=== PATIENT | female | born 1950 | race Caucasian/White ===

== ENCOUNTER → 2017-01-21 08:23 | Day surgery (SDC) | payer BC, MEDICARE ==
--- NOTE | 2017-01-17 11:36 | HP ---
PREOPERATIVE HISTORY AND PHYSICAL EXAM: DATE OF SURGERY/ADMISSION: 01/21/17 DATE OF OFFICE VISIT/ENCOUNTER: 12/30/16 ATTENDING SURGEON: Ruby Ibanez MD * (DICTATED BY BORIS MATTHEW) PROCEDURE: Right wrist carpal tunnel release. CHIEF COMPLAINT: Right hand numbness and tingling. HISTORY OF PRESENT ILLNESS: This is a 66-year-old female who complains of numbness and tingling in her right hand for the past several years. The symptoms have gradually been getting worse. She is having trouble with clothing and using a needle and sewing. She has difficulty holding on to things. She does not have any particular symptoms at night that awaken her, but symptoms during the daytime are quite bothersome. She had an EMG nerve conduction study that showed severe carpal tunnel syndrome on the right. The patient has failed conservative treatment including acupuncture and physical therapy. She is interested in persuing more definitive treatment for this problem in the form of a right carpal tunnel release. PAST MEDICAL HISTORY: 1. History of breast cancer with chemotherapy. 2. Hypothyroidism. PAST SURGICAL HISTORY: 1. Bilateral mastectomy in 1998. 2. Left ankle open reduction and internal fixation. CURRENT MEDICATIONS: 1. [place] supplement. 2. Levothyroxine sodium 88 mcg daily. ALLERGIES: No known drug allergies. FAMILY MEDICAL HISTORY: Noncontributory. SOCIAL HISTORY: The patient is retired. She denies tobacco use or recreational drug use. She does drink alcohol on regular occasion. REVIEW OF SYSTEMS: General: Negative for fevers, chills, or night sweats. No known anesthesia problems. HEENT: Negative for headache, lightheadedness, or syncopal episodes. Integumentary: Negative for abrasions, lesions, or open wounds. Cardiothoracic: Negative for hypertension, chest pain, palpitations, or edema. Pulmonary: Negative for shortness of breath, with exertion, chronic cough, or COPD. GI: Negative for nausea, vomiting, diarrhea, constipation, or GERD. : Negative for nocturia, urinary frequency, urgency, history of UTIs or kidney problems. Musculoskeletal: Positive for current complaint. Negative for chronic or intermittent back pain or history of fractures. Neurological: Negative for history of seizure, stroke, or epilepsy. Endocrine: Positive for hypothyroidism. Negative for diabetes. Hematologic: Negative for easy bruising , anemia, excessive bleeding, or history of DVT. Infectious Disease: Negative for history of MRSA, hepatitis, or HIV. PHYSICAL EXAMINATION GENERAL: Well-developed, well-nourished, 66-year-old female, in no acute distress. VITAL SIGNS: Height 5 feet 4 inches, weight 142 pounds, blood pressure 104/68. We do not have a pulse rate. HEENT: Normocephalic, atraumatic. Pupils are equal, round, and reactive to light. Extraocular movements are intact. Throat is clear. NECK: Supple. No palpable lymph nodes. LUNGS: Lungs are clear to auscultation bilaterally. No wheezes, rales, or rhonchi. CARDIOVASCULAR: Regular rate and rhythm. S1 and S2. No murmurs, rubs, or gallops. No edema. ABDOMEN: Positive bowel sounds, soft, and nontender. NEUROLOGICAL: Alert and oriented x3. Cranial nerves II through XII are intact. Sensation is intact to light touch. MUSCULOSKELETAL: On exam of the right hand, there is marked thenar wasting and decreased thumb strength with abduction. She has good range of motion of her fingers and wrist otherwise. There is decreased sensation in the median nerve distribution and increased symptoms of the median nerve compression test. STUDIES: EMG nerve conduction study shows severe right carpal tunnel syndrome. IMPRESSION: Right carpal tunnel syndrome. PLAN/RECOMMENDATIONS: The patient is scheduled to undergo right wrist carpal tunnel release with Dr. Ibanez on 01/21/17. She will return to the office 10 to 14 days postop for followup and suture removal. A prescription for Ultracet was e- scribed to the patient's pharmacy for postoperative pain management. BORIS MATTHEW [id number]/[facility] #: [id number] KENZIE
[~2017-01-21 08:23] MED LIST: Buffered Lidocaine 0.9% SYRIN* 5 ML/SYR SYRINGE INTRADERM ONE; Lidocaine 1% INJ* 10 MG/ML 30 ML SDV ONE; Lidocaine 2% PF * 5 ML VIAL ONE; Propofol* 10 MG/ML 20 ML BTL IV PUSH ONE
[2017-01-21 10:34] VITALS: BP 113/69
--- NOTE | 2017-01-22 03:42 | OP ---
DATE OF OPERATION: 01/21/17 - [facility] DATE OF : 46 SURGEON: Ruby Ibanez MD TIRE GROOVER: BORIS Gutierrez ANESTHESIOLOGIST: Gelacio Guzmán MD ANESTHESIA: Local MAC. PRE-OP DIAGNOSIS: Right carpal tunnel syndrome. POST-OP DIAGNOSIS: Right carpal tunnel syndrome. OPERATIVE PROCEDURE: Right carpal tunnel release. INDICATIONS: Joanne is a 66-year-old female with numbness and tingling in the median nerve distribution of her right hand. She presents for a right carpal tunnel release. ESTIMATED BLOOD LOSS: Zero. TOURNIQUET TIME: 5 minutes. DESCRIPTION OF PROCEDURE: The patient was brought to the operating room, was given a sedation anesthetic, and a local infiltration of 10 cc of 1% plain lidocaine in the palm of her right hand. The skin of her right hand and forearm was prepped and draped in the usual sterile fashion. The hand and forearm were exsanguinated and tourniquet elevated to 250 mmHg. A longitudinal incision was made in the palm in line with the ring finger. We dissected through the subcutaneous tissue down to the transverse carpal ligament. The ligament was divided sharply with the knife and then more proximally with the scissors. The nerve was dissected free from the surrounding tissue and there was an area of moderate compression at the mid portion of the ligament. The wound was irrigated and skin edges were reapproximated with 4- 0 nylon suture. The wound was dressed with Xeroform, 4x4, Webril, and an Benjy wrap. The patient tolerated the procedure well and was brought to the recovery room in good condition. [id number]/[facility] #: [id number] [facility]
== END | disposition home or self-care (01) ==
LOC: OR 08:23
PROVIDERS: ATTEND Orthopaedic Surgery
DX: G56.01 Carpal tunnel syndrome, right upper limb (principal); E03.9 Hypothyroidism, unspecified; M19.90 Unspecified osteoarthritis, unspecified site; Z85.3 Personal history of malignant neoplasm of breast
CPT/HCPCS: J2001; J2704